=== PATIENT | female | born 1945 | race Caucasian/White ===

== ENCOUNTER 2016-10-27 17:52 | Emergency (ER) | payer MEDICARE ==
[~2016-10-27] VITALS: Ht 172.7 cm; Wt 75.0 kg
[~2016-10-27 17:52] MED LIST: HYDR25TA4 PO; TRAZ-151 PO
[2016-10-27 18:00] VITALS: BP 150/81; PULSE 75; RESP 20; O2SAT 99
[2016-10-27 18:01] VITALS: BP 150/81; PULSE 74; RESP 18; O2SAT 97
--- NOTE | 2016-10-27 18:02 | ED.REPORT ---
HPI-Chest Pain 40 and Over Date of Service October 27, 2016 ED Provider: Sadi Fuller MD 71 y/o female with a hx of HTN presents to the ED complaining of intermittent, non-radiating chest pain that lasted for about 30 minutes, onset an hour ago. The pt states she was getting dressed when the pain suddenly came on. She describes the pain as tightness which doesn't resolve or worsen with anything. She denies SOB and lower extremity swelling. The pt states she is not experiencing any chest discomfort right now but has been fatigued for a week. Her mother had angina and several MIs (but lived to ) Nursing Notes Stated Complaint: TIGHT CHEST PAIN Chief Complaint: Chest Pain Nursing Notes Reviewed: Yes ([employer] not reconciled) Allergies: Coded Allergies: Codeine (Verified Adverse Reaction, Unknown, 03/04/10) DOES NOT LIKE HOW IT MAKES HER FEEL Scheduled Hydrochlorothiazide-Expunged, Do Not Renew! (Hydrochlorothiazide-Expunged, Do Not Renew!) 25 Mg Tablet 25 MG PO DAILY Trazodone-Expunged Drug, Do Not Renew! (Trazodone-Expunged Drug, Do Not Renew!) 50 Mg Tablet 12.5 MG PO HS General Time Seen by MD: 17:59 Chief Complaint Chest pain Hx Obtained From: Patient Arrived By: Walk-in Sudden in Onset?: Yes Onset Occurred: 1 - 4 hours ago Symptom Duration: Intermittent Location: : Substernal Quality: Painful Severity: Current: No pain currently Severity: Maximum: Pain level 7 out of 10 Recent Healthcare: No recent doctor visit Similar Sx Previous: No Past Medical History Past Medical History Hypertension Restless leg syndrome Admit for atypical chest pain with negative nuclear stress test in 2009 chronic hip and back pain Past Surgical History Tubal ligation 2 knee surgeries Lumbar surgery for disc repair Family History Mother had angina and several [place] Smoking History Former Smoker (smoked for approximately 5 years in her mid 20s) Social History Alcohol Use: "Social" Drug Use: Denies drug use Ambulatory Status Independent Review of Systems Constitutional: Reports: Fatigue Respiratory: Denies: Shortness of breath Cardiovascular: Reports: Chest pain (Tightness), Denies: Edema Complete sys rev & neg: except as marked. Physical Exam Initial Vital Signs Vital Signs (First) Date Time Temp Pulse Resp B/P Pulse Ox O2 Delivery O2 Flow Rate FiO2 10/27/16 18:00 75 20 150/81 99 Room Air 10/27/16 18:01 36.4 Initial VS: Reviewed, Vital signs normal Head / Eyes: Atraumatic, Normocephalic Neck: Supple, Full range of motion Extremities: Vascular intact, Neuro intact, No swelling, No tenderness Skin: Warm, Dry, No cyanosis Neurologic: Alert, Oriented, Nonfocal General/Constitutional: Awake, Alert, No acute distress, Well appearing, Cooperative Respiratory / Chest: Atraumatic, Breath sounds NL, Breath sounds = bilat, No respiratory distress, No rales, No rhonchi, No wheezing Cardiovascular: Heart rate NL, Regular rhythm, Heart sounds NL, No gallop, No murmurs Abdomen: Atraumatic, Soft, Non-tender Back: Atraumatic, Full range of motion Interpretation & Diagnostics Lab Results Interpretation Result Diagram: 10/27/165 10/27/16 181 Test 10/27/16 18:15 10/27/16 20:05 White Blood Count 7.2th/mm3 (3.8-10.1) Red Blood Count 4.47mil/mm3 (3.90-5.20) Hemoglobin 14.0g/dL (12.0-15.6) Hematocrit 40.0% (35.0-46.0) Mean Corpuscular Volume 89.5fL (81-100) Mean Corpuscular Hemoglobin 31.3pg (27.0-35.0) Mean Corpuscular Hemoglobin Concent 35.0% (32.0-37.0) Red Cell Distribution Width 14.1% (12.3-15.4) Platelet Count 196bil/L (150-400) Neutrophils (%) (Auto) 58.9% (40-74) Lymphocytes (%) (Auto) 26.8% (14-46) Monocytes (%) (Auto) 9.6% (4-12) Eosinophils (%) (Auto) 4.0% (0-5) Basophils (%) (Auto) 0.4% (0-3) Sodium Level 139mEq/L (134-144) Potassium Level 3.5mEq/L (3.5-5.2) Chloride Level 100mEq/L (97-108) Carbon Dioxide Level 21mmol/L (18-29) Blood Urea Nitrogen 26mg/dL (8-27) Creatinine 0.88mg/dL (0.57-1.00) Estimat Glomerular Filtration Rate 90mL/min (>59) Glucose Level 96mg/dL (60-99) Calcium Level 9.2mg/dL (8.5-10.1) Magnesium Level 2.2mg/dL (1.6-2.6) Total Bilirubin 0.4mg/dL (0.0-1.2) Aspartate Amino Transf (AST/SGOT) 26U/L (0-50) Alanine Aminotransferase (ALT/SGPT) 22U/L (0-32) Alkaline Phosphatase 83U/L (25-165) Total Protein 6.8g/dL (6.4-8.4) Albumin 4.0g/dL (3.4-5.0) Troponin T < 0.010ug/L (0.0-0.011) Lab Results Interpretation: CBC normal CMP normal Troponin #1 and #2 negative ECG Interpretation ECG Interpretation: Normal sinus rhtyhm. Rate 72. Time: 18:02 Interpreted by: ED physician X-Ray Chest Interpretation Chest Xray Interpretation: IMPRESSION: Negative chest. Dictated by: Jerrod Guillen M.D. on 10/27/2016 at 18:27 Approved by: Jerrod Guillen M.D. on 10/27/2016 at 18:28 View: Portable, 1 view Interpretation / Wet Read by: Interpret - Radiologist Re-Eval/Medical Decision Med Decision/Clinical Course This is a 71-year-old female without prior heart disease, who presents with an episode of some chest tightness. It is nonexertional, somewhat atypical, no radiation, no diaphoresis, no nausea, no palpitations occurred while she is initially putting on a bra. She has had a similar episode about 7 years ago for which she was admitted and ruled out for coronary disease with a subsequent negative stress test. Symptoms spontaneously resolved last 40 minutes and she came to the emergency medical checked out. She is currently asymptomatic. His normal physical exam, and clinically appears well. She has normal vitals. No skin changes are evident on EKG. Blood work included troponin 2 was negative. Chest x-ray was negative for acute disease process. She has no features ro risk factors to suggest a pulmonary embolus. SHe received empiric aspirin and Nitropaste while waiting. She thinks it might be her esophagus, and she makes a reasonable argument. At this point with serial troponins, negative evaluation, I am not finding indication she requires hospitalization. Her calculated HEART score is 3 which puts her at low risk for MACE and indicates she is appropriate for outpatient follow-up. She is comfortable following up with her PCP. Return in routine precautions reviewed. Patient is discharged asymptomatic in good condition. Source of Hx: Old records Time of Eval: 19:13 Patient Status: Condition improved Re-Evaluation/Progress Note: Rechecked pt. Discussed lab, imaging results and diagnosis. Informed the pt of the plan to discharge. Pt understands and agrees with plan. F/U instructions and RTER warning given. All questions addressed. Differential Diagnosis: Positive: Chest pain, acute, Negative: Acute coronary syndrome, Acute myocardial infarct, Congestive heart failure, Dysrhythmia, Esophageal rupture, Gun shot wound chest, Myocardial infarction, Pericarditis, Pneumomediastinum, Pneumonia, Pneumothorax , Pulmonary edema, Pulmonary embolism, Rib fracture, Stab wound chest Counseled Regarding: Diagnosis, Lab results, Need for follow-up, When/why to return to ED Discharge & Departure Primary Impression: Chest pain Chest pain type: unspecified Qualified Code: R07.9 - Chest pain, unspecified Disposition: Home Discharge Condition All VS Reviewed: Yes Condition: Stable Patient Instructions: Chest Pain (ED) Additional Instructions: 1. A dangerous cause of the chest discomfort was not identified. 2. Your heart tests in the emergency department were normal. 3. Your blood tests and x-rays were also normal 4. And may need have been an episode of esophageal spasm causing her symptoms. We do not know this for certain however. 5. Do recommend following up with your doctor next week to discuss a repeat stress test given her last one was in 2009. 6. In the meantime activities as tolerated with no restrictions. However if he developed new or worsening symptoms, chest pain that last more than 10-15 minutes, you should return to the emergency department for reevaluation. Referrals: Shin Navarro MD (PCP) Scribe Attestation Portions of this note were transcribed by Jero Heredia. I, , personally performed the history, physical exam and medical decision-making;I reviewed and confirmed the accuracy of the information in the transcribed note. Signed by Shira Monique. 10/27/16 2055 copies to: Shin Navarro MD, Matthew F MD October 27, 2016 18:02 Jero Heredia October 27, 2016 18:14
[2016-10-27] MEDS ORDERED: Nitroglycerin 2% 1 Gm Ointment TOPICAL SCH (18:15)
[2016-10-27 18:26] LABS: BASOPHILS % (AUTO) 0.4 % (0-3); MONOCYTES % (AUTO) 9.6 % (4-12); Mean Corpuscular Hemoglobin 31.3 pg (27.0-35.0); Mean Corpuscular Volume 89.5 fL (81-100); NEUTROPHILS % (AUTO) 58.9 % (40-74); Platelet Count 196 bil/L (150-400)
--- NOTE | 2016-10-27 18:29 | DRSVH ---
PROCEDURE: X-RAY CHEST ONE VIEW, PORTABLE ([id number]) INDICATIONS: CHEST PAIN TECHNIQUE: One view of the chest was acquired. COMPARISON: [facility], , CHEST 1VW (PORTABLE), 03/04/2010, 9:40. FINDINGS: Surgical changes and devices: None. Lungs and pleura: No pleural effusions or pneumothorax. Lungs are clear. Mediastinum: Mediastinal contours appear normal. Heart size is normal. Bones and chest wall: No suspicious bony lesions. Overlying soft tissues appear unremarkable. IMPRESSION: Negative chest. Dictated by: Jerrod Guillen M.D. on 10/27/2016 at 18:27 Approved by: Jerrod Guillen M.D. on 10/27/2016 at 18:28
[2016-10-27 18:44] VITALS: BP 139/75; PULSE 64; RESP 14; O2SAT 96
[2016-10-27 18:47] LABS: TROPONIN T < 0.010 ug/L (0.0-0.011)
[2016-10-27 18:58] LABS: Magnesium 2.2 mg/dL (1.6-2.6)
[2016-10-27 20:27] VITALS: BP 125/73; PULSE 77; RESP 18; O2SAT 95
[2016-10-27 20:57] VITALS: BP 124/70; PULSE 84; RESP 16; O2SAT 95
== END 2016-10-27 20:49 | disposition home or self-care (01) ==
LOC: SED 17:52
DX: R07.2 Precordial pain (principal); R53.83 Other fatigue; I10 Essential (primary) hypertension; Z87.891 Personal history of nicotine dependence; Z88.5 Allergy status to narcotic agent